=== PATIENT | female | born 1985 | race Caucasian/White ===

== ENCOUNTER 2018-07-31 05:15 | Inpatient (IN) | payer MEDICAID ==
[2018-07-31 07:19] LABS: ADD UMIC YES; UR ASCORBIC ACID NEGATIVE (NEGATIVE); UR BACTERIA MODERATE /HPF (NONE SEEN); UR BILIRUBIN (Dip) NEGATIVE (NEGATIVE); UR BLOOD (Dip) NEGATIVE (NEGATIVE); UR CLARITY CLEAR (CLEAR); UR COLOR YELLOW (YELLOW); UR GLUCOSE (Dip) NEGATIVE (NEGATIVE); UR KETONES (Dip) NEGATIVE (NEGATIVE); UR LEUKOCYTE ESTERASE (Dip) TRACE Leu/ul (NEGATIVE); UR NITRITE (Dip) NEGATIVE (NEGATIVE); UR RBC 1 /HPF (0-5); UR SPECIFIC GRAVITY (Dip) 1.006 (1.003-1.030); UR SQUAMOUS EPITHELIAL CELL FEW /HPF (FEW); UR TOTAL PROTEIN (Dip) NEGATIVE (NEGATIVE); UR UROBILINOGEN (Dip) NEGATIVE (NEGATIVE); UR WBC 2 /HPF (0-5)
[2018-07-31] MEDS: LACTATED RINGER'S 1,000 ML IV ×5 (08:36→21:50)
[2018-07-31] MEDS ORDERED: MISOPROSTOL 200 MCG TAB PR (10:30)
[2018-07-31] MEDS ORDERED: CARBOPROST 250 MCG INJ IM (10:30)
[2018-07-31] MEDS ORDERED: METHYLERGONOVINE 0.2 MG INJ IM (10:30)
[2018-07-31] MEDS ORDERED: BUTORPHANOL 1 MG INJ IV (10:30)
[2018-07-31] MEDS ORDERED: LIDOCAINE 1% (MPF) 30 ML INJ INJ (10:30)
[2018-07-31] MEDS ORDERED: BUTORPHANOL 2 MG INJ IV (10:30)
[2018-07-31] MEDS ORDERED: OXYTOCIN 30 UNITS/LR 500 ML IV ×3 (10:30)
[2018-07-31 11:14] LABS: ADD MAN DIFF? NO
[2018-07-31 11:21] LABS: BASOPHILS % 0.6 % (0.0-2.0); EOSINOPHILS % 0.4 % (0.0-7.0); HEMATOCRIT 32.9 % (37.0-47.0); HEMOGLOBIN 10.4 g/dl (12.0-16.0); LYMPHOCYTES # 1.5 10^3/ul (0.8-2.9); LYMPHOCYTES % 22.4 % (15.0-51.0); MEAN CORPUSCULAR HEMOGLOBIN 25.4 pg (29.0-33.0); MEAN CORPUSCULAR HGB CONC 31.6 g/dl (32.0-37.0); MEAN CORPUSCULAR VOLUME 80.2 fl (82.0-101.0); MEAN PLATELET VOLUME 10.7 fl (7.4-10.4); MONOCYTE # 0.4 10^3/ul (0.3-0.9); MONOCYTES % 6.3 % (0.0-11.0); NEUTROPHIL # 4.8 10^3/ul (1.6-7.5); NEUTROPHILS % 69.7 % (39.0-77.0); PLATELET COUNT 260 10^3/UL (140-415); RED CELL DISTRIBUTION WIDTH 15.9 % (11.5-14.5)
[2018-07-31 11:21] LABS: WHITE BLOOD COUNT 6.9 10^3/ul (4.8-10.8)
[2018-07-31 11:36] LABS: INR 0.88; PT RATIO 0.9
[2018-07-31 11:37] LABS: PARTIAL THROMBOPLASTIN TIME 26.2 Sec (23.0-35.0)
[2018-07-31 15:22] LABS: HEPATITIS B SURFACE ANTIGEN NEGATIVE (NEGATIVE)
[2018-07-31 15:51] LABS: RAPID PLASMA REAGIN NONREACTIVE (NR)
[2018-08-01] MEDS: LACTATED RINGER'S 1,000 ML IV ×3 (04:30→07:47)
== END 2018-08-01 15:37 | disposition home or self-care (01) | DRG 833 ==
LOC: OBT 05:15 → L-D 05:15 → OBT 09:58 → L-D 10:00
DX: O60.03 Preterm labor without delivery, third trimester (principal); Z3A.39 39 weeks gestation of pregnancy
CPT/HCPCS: 36415; 76818; 81001; 85025; 85610; 85730; 86592; 86850; 86900; 86901; 87340; 96360

== ENCOUNTER 2018-08-05 05:50 | Inpatient (IN) | payer MEDICAID ==
[2018-08-05] MEDS ORDERED: BUTORPHANOL 2 MG INJ IV (06:30)
[2018-08-05] MEDS ORDERED: CARBOPROST 250 MCG INJ IM ×2 (06:30→19:00)
[2018-08-05] MEDS ORDERED: LIDOCAINE 1% (MPF) 30 ML INJ INJ (06:30)
[2018-08-05] MEDS ORDERED: OXYTOCIN 30 UNITS/LR 500 ML IV ×2 (06:30→19:00)
[2018-08-05] MEDS ORDERED: METHYLERGONOVINE 0.2 MG INJ IM ×2 (06:30→19:00)
[2018-08-05] MEDS ORDERED: MISOPROSTOL 200 MCG TAB PR ×2 (06:30→19:00)
[2018-08-05 06:52] LABS: ADD MAN DIFF? NO
[2018-08-05 06:57] LABS: BASOPHILS % 0.5 % (0.0-2.0); EOSINOPHILS # 0.1 10^3/ul (0.0-0.5); HEMATOCRIT 35.1 % (37.0-47.0); HEMOGLOBIN 11.1 g/dl (12.0-16.0); LYMPHOCYTES # 1.8 10^3/ul (0.8-2.9); LYMPHOCYTES % 29.3 % (15.0-51.0); MEAN CORPUSCULAR HEMOGLOBIN 24.9 pg (29.0-33.0); MEAN CORPUSCULAR HGB CONC 31.6 g/dl (32.0-37.0); MEAN CORPUSCULAR VOLUME 78.9 fl (82.0-101.0); MEAN PLATELET VOLUME 10.8 fl (7.4-10.4); MONOCYTE # 0.3 10^3/ul (0.3-0.9); MONOCYTES % 5.4 % (0.0-11.0); NEUTROPHIL # 3.9 10^3/ul (1.6-7.5); NEUTROPHILS % 63.3 % (39.0-77.0); PLATELET COUNT 254 10^3/UL (140-415); RED BLOOD COUNT 4.45 10^6/ul (4.20-5.40); RED CELL DISTRIBUTION WIDTH 16.1 % (11.5-14.5)
[2018-08-05 06:57] LABS: WHITE BLOOD COUNT 6.1 10^3/ul (4.8-10.8)
[2018-08-05 07:35] LABS: PROTIME 11.2 Sec (11.9-14.9); PT RATIO 0.9
[2018-08-05 07:36] LABS: PARTIAL THROMBOPLASTIN TIME 26.3 Sec (23.0-35.0)
[2018-08-05] MEDS: LACTATED RINGER'S 1,000 ML IV ×4 (07:44→15:51)
[2018-08-05 07:51] LABS: HEPATITIS B SURFACE ANTIGEN NEGATIVE (NEGATIVE)
[2018-08-05] MEDS ORDERED: FENTAnyl 2MCG/ML-ROPIV 0.2% 100 ML (08:08)
[2018-08-05] MEDS ORDERED: ONDANSETRON 4 MG INJ IV (09:00)
[2018-08-05] MEDS ORDERED: FENTAnyl 2MCG/ML-ROPIV 0.2% 100 ML BAG EPI (09:00)
[2018-08-05] MEDS ORDERED: NALOXONE (0.4 MG/ML) INJ IV (09:00)
[2018-08-05 13:50] LABS: ALANINE AMINOTRANSFERASE 27 IU/L (13-69); ALBUMIN 3.5 g/dl (3.3-4.9); ALKALINE PHOSPHATASE 321 IU/L (42-121); ASPARTATE AMINO TRANSFERASE 37 IU/L (15-46); BILIRUBIN,INDIRECT 0.7 mg/dl (0-1.1); BILIRUBIN,TOTAL 0.7 mg/dl (0.2-1.3); TOTAL PROTEIN 6.9 g/dl (6.1-8.1)
[2018-08-05] MEDS ORDERED: IBUPROFEN 600 MG TAB PO (14:00)
[2018-08-05 14:15] LABS: ADD UMIC YES; UR ASCORBIC ACID NEGATIVE (NEGATIVE); UR BILIRUBIN (Dip) NEGATIVE (NEGATIVE); UR BLOOD (Dip) 2+ mg/dL (NEGATIVE); UR CLARITY CLEAR (CLEAR); UR COLOR YELLOW (YELLOW); UR GLUCOSE (Dip) NEGATIVE (NEGATIVE); UR KETONES (Dip) NEGATIVE (NEGATIVE); UR LEUKOCYTE ESTERASE (Dip) NEGATIVE Leu/ul (NEGATIVE); UR NITRITE (Dip) NEGATIVE (NEGATIVE); UR RBC 45 /HPF (0-5); UR SPECIFIC GRAVITY (Dip) 1.011 (1.003-1.030); UR TOTAL PROTEIN (Dip) NEGATIVE (NEGATIVE); UR UROBILINOGEN (Dip) NEGATIVE (NEGATIVE); UR WBC 1 /HPF (0-5)
[2018-08-05] MEDS: KETOROLAC 30 MG INJ IV (15:51)
[2018-08-05] MEDS: MINERAL OIL LIGHT 10 ML VIAL TOP (15:51)
[2018-08-05] MEDS: OXYTOCIN 30 UNITS/LR 500 ML IV ×2 (15:53→15:54)
[2018-08-05 16:54] LABS: RAPID PLASMA REAGIN NONREACTIVE (NR)
[2018-08-05] MEDS: CEPHALEXIN 500 MG CAP PO ×2 (18:52→23:54)
[2018-08-05] MEDS: BENZOCAINE 20% 56 ML SPRAY TOP (18:52)
[2018-08-05] MEDS: IBUPROFEN 600 MG TAB PO ×2 (18:52→23:54)
[2018-08-05] MEDS: WITCH HAZEL/GLYCERIN PAD PR (18:53)
[2018-08-05] MEDS: DIBUCAINE 1% 30 GM OINT TOP (18:53)
[2018-08-05] MEDS ORDERED: LANOLIN HPA 1 PKT TOP (19:00)
[2018-08-05] MEDS ORDERED: ZOLPIDEM 5 MG TAB PO (19:00)
[2018-08-05] MEDS ORDERED: HYDROCODONE/APAP (5/325) TAB PO (19:00)
[2018-08-05] MEDS: LACTATED RINGER'S 1,000 ML IV* (20:31)
[2018-08-05] MEDS: MAGNESIUM HYDROXIDE 30ML CUP PO (21:51)
[2018-08-05] MEDS: SENNA/DOCUSATE NA (8.6MG/50MG) TAB PO (21:51)
[2018-08-06] MEDS: LACTATED RINGER'S 1,000 ML IV* (02:34)
[2018-08-06] MEDS: HYDROCODONE/APAP (5/325) TAB PO (03:40)
[2018-08-06] MEDS: IBUPROFEN 600 MG TAB PO ×4 (05:34→23:53)
[2018-08-06] MEDS: CEPHALEXIN 500 MG CAP PO ×4 (05:34→23:53)
[2018-08-06 08:10] LABS: ADD MAN DIFF? NO
[2018-08-06 08:14] LABS: WHITE BLOOD COUNT 9.1 10^3/ul (4.8-10.8)
[2018-08-06 08:14] LABS: BASOPHILS % 0.4 % (0.0-2.0); EOSINOPHILS # 0.1 10^3/ul (0.0-0.5); EOSINOPHILS % 0.8 % (0.0-7.0); HEMATOCRIT 28.4 % (37.0-47.0); LYMPHOCYTES # 2.4 10^3/ul (0.8-2.9); LYMPHOCYTES % 26.7 % (15.0-51.0); MEAN CORPUSCULAR HEMOGLOBIN 25.1 pg (29.0-33.0); MEAN CORPUSCULAR HGB CONC 31.7 g/dl (32.0-37.0); MEAN CORPUSCULAR VOLUME 79.3 fl (82.0-101.0); MEAN PLATELET VOLUME 10.5 fl (7.4-10.4); MONOCYTE # 0.6 10^3/ul (0.3-0.9); MONOCYTES % 6.3 % (0.0-11.0); NEUTROPHIL # 5.9 10^3/ul (1.6-7.5); NEUTROPHILS % 65.1 % (39.0-77.0); PLATELET COUNT 221 10^3/UL (140-415); RED BLOOD COUNT 3.58 10^6/ul (4.20-5.40); RED CELL DISTRIBUTION WIDTH 15.8 % (11.5-14.5)
[2018-08-06] MEDS: SENNA/DOCUSATE NA (8.6MG/50MG) TAB PO ×2 (08:46→23:08)
[2018-08-06] MEDS: DIBUCAINE 1% 30 GM OINT TOP (08:46)
[2018-08-06] MEDS: MAGNESIUM HYDROXIDE 30ML CUP PO ×2 (08:46→21:00)
[2018-08-07] MEDS: CEPHALEXIN 500 MG CAP PO (06:08)
[2018-08-07] MEDS: IBUPROFEN 600 MG TAB PO (06:09)
[2018-08-07] MEDS: MAGNESIUM HYDROXIDE 30ML CUP PO (09:11)
[2018-08-07] MEDS: SENNA/DOCUSATE NA (8.6MG/50MG) TAB PO (09:11)
[2018-08-07] MEDS: MEASLES,MUMPS,RUBELLA VACCINE INJ SC* (09:42)
[2018-08-07] MEDS: VARICELLA VACCINE LIVE/PF 1,350 UNIT/0.5 ML ML SC* (09:42)
[2018-08-07] MEDS: DIPHTH/TET/ACEL PERTUSS (ADULT) 0.5 ML VIAL IM* (09:42)
== END 2018-08-07 11:25 | disposition home or self-care (01) | DRG 807 ==
LOC: OBT 05:50 → L-D 05:50 → OBT 06:09 → L-D 06:09 → PP1 17:15
PROVIDERS: Obstetrics & Gynecology
PROC: 10E0XZZ Delivery of Products of Conception, External Approach (ICD-10-PCS; principal; 2018-08-05)
PROC: 0HQ9XZZ Repair Perineum Skin, External Approach (ICD-10-PCS; 2018-08-05)
PROC: 4A1HXCZ Monitoring of Products of Conception, Cardiac Rate, External Approach (ICD-10-PCS; 2018-08-05)
DX: O48.0 Post-term pregnancy (principal); Z37.0 Single live birth; Z3A.40 40 weeks gestation of pregnancy; O34.219 Maternal care for unspecified type scar from previous cesarean delivery; O70.0 First degree perineal laceration during delivery
CPT/HCPCS: 76815; 76818; 80076; 81001; 85025; 85610; 85730; 86592; 86850; 86900; 86901; 87340; 90716